=== PATIENT | female | born 1935 | race African-American/Black ===

== ENCOUNTER 2022-11-26 06:35 | Inpatient (IN) | payer MEDICARE, OTHER ==
[~2022-11-26] VITALS: Ht 165.1 cm; Wt 61.5 kg
[2022-11-26 07:15] LABS: Mean Corpuscular Hemoglobin 24.2 pg (28.0-32.0)
[2022-11-26 07:17] LABS: Hematocrit 31.8 % (36.0-46.0); Hemoglobin 9.9 g/dL (12.2-16.2); Mean Corpuscular Hgb Conc. 31.1 g/dL (32.0-36.0); Mean Corpuscular Volume 77.9 fL (80.0-100.0); Red Blood Cells 4.08 10^6/uL (4.0-5.20); Red Cell Distribution Width 18.3 % (11.8-14.3); White Blood Cell 5.9 10^3/uL (4.4-10.8)
[2022-11-26 07:18] LABS: Basophils % (manual) 0 (0.0-2.0); Blast Cells 0; Eosinophils % (manual) 0 (0-7); Metamyelocytes % 0; Myelocytes % 0; Promyelocytes % 0; Reactive Lymphocytes 0
[2022-11-26 07:47] LABS: Potassium 3.7 mmol/L (3.5-5.1)
[2022-11-26 07:54] LABS: Albumin 3.3 g/dL (3.4-5.0); BUN/Creatinine Ratio 25.3 (10.0-20.0); Bilirubin, Total 0.4 mg/dL (0.2-1.0); Calcium 8.7 mg/dL (8.5-10.1); Total Protein 7.8 g/dL (6.4-8.2)
[2022-11-26 08:09] LABS: INR 1.86 (0.9-1.15); Partial Thromboplastin Time 51.8 sec (24.6-33.4)
[2022-11-26 09:07] LABS: Band Neutrophils % (manual) 1; Lymphocytes % (manual) 31 (10.0-50.0); Monocytes % (manual) 3 (0-12)
[2022-11-26] MEDS ORDERED: ASPirin 81 mg TAB PO ONE (14:15)
[2022-11-26] MEDS ORDERED: LOSARTAN POTASSIUM 50 MG TAB PO ONE (14:15)
[2022-11-26] MEDS ORDERED: DOCUSATE SOD 100 MG CAP PO PRN (16:15)
[2022-11-26] MEDS ORDERED: ONDANSETRON HCL 4 MG/2 ML VIAL IV PRN (16:15)
[2022-11-26] MEDS ORDERED: NITROGLYCERIN 0.4 MG SL TAB SL PRN (16:15)
[2022-11-26] MEDS ORDERED: ACETAMINOPHEN 325 MG TAB PO PRN (16:15)
[2022-11-26] MEDS ORDERED: MORPHINE SULFATE INJ 2 MG/ml SYRG IV PRN (16:15)
[2022-11-26] MEDS ORDERED: HYDROcodone-ACET 5/325MG TAB PO PRN (16:15)
[2022-11-26] MEDS ORDERED: DILT-102 PO (16:21)
[2022-11-26] MEDS ORDERED: LOSA-39 PO (16:21)
[2022-11-26] MEDS ORDERED: RIV20T PO (16:21)
[2022-11-26] MEDS ORDERED: FUR20T PO (16:21)
[2022-11-26] MEDS: hydrALAZINE HCL 20 MG/ML VL IV PRN (19:05)
[2022-11-26] MEDS ORDERED: cloNIDine 0.1 mg/24hr 7 DAY PATCH TD ONE (19:30)
[2022-11-26] MEDS ORDERED: cloNIDine HCL 0.1 MG TAB PO ONE (19:45)
[2022-11-26] MEDS: MELATONIN 5 MG TAB PO ONE (22:00)
[2022-11-26] MEDS: SODIUM CHLOR 0.9% PF (SALINE LOCK) 10ML VIAL/SYR IV SCH (22:12)
[2022-11-27] MEDS: MELATONIN 5 MG TAB PO ONE (01:57)
[2022-11-27] MEDS: hydrALAZINE HCL 20 MG/ML VL IV PRN (02:27)
[2022-11-27 05:07] LABS: Albumin 2.9 g/dL (3.4-5.0); Calcium 9.1 mg/dL (8.5-10.1); Potassium 3.8 mmol/L (3.5-5.1)
[2022-11-27 05:10] LABS: BUN/Creatinine Ratio 30.6 (10.0-20.0)
[2022-11-27 05:12] LABS: Bilirubin, Total 0.5 mg/dL (0.2-1.0); Total Protein 7.3 g/dL (6.4-8.2)
[2022-11-27 05:15] LABS: Red Cell Distribution Width 18.1 % (11.8-14.3); White Blood Cell 5.1 10^3/uL (4.4-10.8)
[2022-11-27 05:16] LABS: Hematocrit 29.2 % (36.0-46.0); Hemoglobin 9.3 g/dL (12.2-16.2); Mean Corpuscular Hemoglobin 24.1 pg (28.0-32.0); Mean Corpuscular Hgb Conc. 31.9 g/dL (32.0-36.0); Mean Corpuscular Volume 75.5 fL (80.0-100.0); Red Blood Cells 3.86 10^6/uL (4.0-5.20)
[2022-11-27 05:41] LABS: Band Neutrophils % (manual) 0; Basophils % (manual) 0 (0.0-2.0); Blast Cells 0; Metamyelocytes % 0; Myelocytes % 0; Promyelocytes % 0; Reactive Lymphocytes 0
[2022-11-27] MEDS: SODIUM CHLOR 0.9% PF (SALINE LOCK) 10ML VIAL/SYR IV SCH ×3 (06:04→21:44)
[2022-11-27 09:00] VITALS: BP 192/72
[2022-11-27 09:17] LABS: Eosinophils % (manual) 4 (0-7); Lymphocytes % (manual) 28 (10.0-50.0); Monocytes % (manual) 7 (0-12)
[2022-11-27] MEDS ORDERED: LOSARTAN POTASSIUM 50 MG TAB PO SCH ×2 (10:00→22:00)
[2022-11-27] MEDS ORDERED: PANTOPRAZOLE 40 MG/10 ML VIAL INJ IV SCH (10:00)
[2022-11-27] MEDS ORDERED: FUROSEMIDE 20 MG TAB PO SCH (10:00)
[2022-11-27] MEDS: RIVAROXABAN 20 MG TAB PO SCH (10:01)
[2022-11-27] MEDS: dilTIAZem HCL 180MG ER CAP PO SCH (10:01)
[2022-11-27] MEDS ORDERED: SIMV-8 PO (10:24)
[2022-11-27] MEDS ORDERED: LATA0.0019 EACHEYE (10:24)
[2022-11-27] MEDS ORDERED: PRED20TA2 (10:24)
[2022-11-27] MEDS ORDERED: MELO1TAB56 PO (10:24)
[2022-11-27 13:00] VITALS: BP 155/77
[2022-11-27] MEDS ORDERED: hydrALAZINE HCL 20 MG/ML VL IV PRN (13:45)
[2022-11-27 17:00] VITALS: BP 154/77
[2022-11-27 22:00] VITALS: BP 146/67
[2022-11-28 05:00] VITALS: BP 163/98
[2022-11-28] MEDS: SODIUM CHLOR 0.9% PF (SALINE LOCK) 10ML VIAL/SYR IV SCH ×3 (05:37→21:26)
[2022-11-28] MEDS ORDERED: METOPROLOL TARTRATE 1MG/1ML-5ML VIAL IV ONE ×4 (08:00→11:00)
[2022-11-28] MEDS: dilTIAZem HCL 180MG ER CAP PO SCH (08:21)
[2022-11-28 09:00] VITALS: BP 124/66
[2022-11-28] MEDS: FAMOTIDINE 20 MG TAB PO SCH (09:55)
[2022-11-28] MEDS: RIVAROXABAN 20 MG TAB PO SCH (09:55)
[2022-11-28] MEDS: FUROSEMIDE 20 MG TAB PO SCH (10:00)
[2022-11-28 12:34] LABS: Amphetamine Screen, Urine NEGATIVE (NEGATIVE); Barbiturate Scree,Urine NEGATIVE (NEGATIVE); Benzodiazephine Screen, Urine NEGATIVE (NEGATIVE); Cannabinoid Screen, Urine NEGATIVE (NEGATIVE); Cocaine Screen, Urine NEGATIVE (NEGATIVE); Opiate Scree,Urine NEGATIVE (NEGATIVE); Phencyclidine Screen, Urine NEGATIVE (NEGATIVE)
[2022-11-28 13:00] VITALS: BP 87/52
[2022-11-28 17:00] VITALS: BP 121/67
[2022-11-28] MEDS ORDERED: dilTIAZem HCL 180MG ER CAP PO ONE (18:00)
[2022-11-28 20:26] VITALS: BP 112/50
[2022-11-28] MEDS: METOPROLOL TARTRATE 25 MG TAB PO SCH (21:22)
[2022-11-29] MEDS: SODIUM CHLOR 0.9% PF (SALINE LOCK) 10ML VIAL/SYR IV SCH ×3 (06:15→22:05)
[2022-11-29 06:18] VITALS: BP 120/53
[2022-11-29 08:00] VITALS: BP 151/61
[2022-11-29] MEDS: FAMOTIDINE 20 MG TAB PO SCH (09:50)
[2022-11-29] MEDS: FUROSEMIDE 20 MG TAB PO SCH (09:51)
[2022-11-29] MEDS: METOPROLOL TARTRATE 25 MG TAB PO SCH (09:53)
[2022-11-29] MEDS: dilTIAZem HCL 180MG ER CAP PO SCH (09:53)
[2022-11-29] MEDS: RIVAROXABAN 20 MG TAB PO SCH (09:54)
[2022-11-29 12:00] VITALS: BP 133/76
[2022-11-29] MEDS ORDERED: DILT-102 PO (12:47)
[2022-11-29] MEDS ORDERED: LOSA-39 PO (12:47)
[2022-11-29 16:00] VITALS: BP 118/69
[2022-11-29] MEDS ORDERED: LORazepam 2MG/ML-1ML VIAL IV ONE (16:00)
[2022-11-29 20:00] VITALS: BP 123/42
[2022-11-29 22:00] VITALS: BP 120/51
[2022-11-29] MEDS: LORazepam 0.5 MG TAB PO PRN (22:00)
[2022-11-30 05:00] VITALS: BP 98/58
[2022-11-30] MEDS: SODIUM CHLOR 0.9% PF (SALINE LOCK) 10ML VIAL/SYR IV SCH ×2 (05:48→14:13)
[2022-11-30 09:00] VITALS: BP 157/81
[2022-11-30] MEDS ORDERED: METOPROLOL SUCCINATE XL 50 MG TAB PO SCH (10:00)
[2022-11-30] MEDS: dilTIAZem HCL 180MG ER CAP PO SCH (10:23)
[2022-11-30] MEDS: FUROSEMIDE 20 MG TAB PO SCH (10:24)
[2022-11-30] MEDS: FAMOTIDINE 20 MG TAB PO SCH (10:25)
[2022-11-30] MEDS: RIVAROXABAN 20 MG TAB PO SCH (10:25)
[2022-11-30] MEDS: LORazepam 0.5 MG TAB PO PRN (10:26)
[2022-11-30] MEDS ORDERED: dilTIAZem HCL 60 MG TAB PO ONE (12:00)
[2022-11-30 13:00] VITALS: BP 148/68
[2022-11-30] MEDS ORDERED: DIGO0.1220 PO (13:03)
[2022-11-30] MEDS ORDERED: DIGOXIN (250MCG/ML) 2 ML AMPULE IV ONE (13:15)
[2022-11-30 13:52] LABS: Potassium 3.8 mmol/L (3.5-5.1)
[2022-11-30 14:00] LABS: Magnesium 2.6 mg/dL (1.6-2.6)
[2022-11-30 14:01] LABS: Urine Bacteria FEW /hpf (None Seen); Urine Blood Negative /uL (Negative); Urine Hyaline Cast FEW /lpf (0 - 2); Urine Specific Gravity 1.008 (1.001-1.035); Urine WBC 7 /hpf (0 - 5)
[2022-11-30 15:30] VITALS: BP 142/76
[2022-11-30 17:00] VITALS: BP 145/57
[2022-11-30] MEDS ORDERED: CIPR500T4 PO (20:16)
[2022-12-01] MEDS ORDERED: dilTIAZem 120MG ER CAP PO SCH (10:00)
== END 2022-11-30 18:30 | disposition home or self-care (01) | DRG 305 ==
LOC: EDBD 06:35 → ER 06:35 → TELE 16:21 → TELE-CENTR 11-27 09:05
PROVIDERS: ADMIT Nurse Practitioner Family; ATTEND Hospitalist
DX: I16.0 Hypertensive urgency (principal); I48.20 Chronic atrial fibrillation, unspecified; E44.1 Mild protein-calorie malnutrition; I20.0 Unstable angina; I67.4 Hypertensive encephalopathy; I47.1 Supraventricular tachycardia; E11.9 Type 2 diabetes mellitus without complications; Z20.822 Contact with and (suspected) exposure to COVID-19; I50.9 Heart failure, unspecified; I11.0 Hypertensive heart disease with heart failure; E78.5 Hyperlipidemia, unspecified; Z95.810 Presence of automatic (implantable) cardiac defibrillator; Z82.0 Family history of epilepsy and other diseases of the nervous system; Z68.22 Body mass index [BMI] 22.0-22.9, adult
CPT/HCPCS: 36415; 70551; 71045; 80053; 80307; 81001; 83735; 83880; 84132; 84443; 84484; 85007; 85027; 85379; 85610; 85730; 87426; 93005; 93306; 96374; 97110; 97116; 97163; 97530; C9113; G0378; J2405